=== PATIENT | male | born 1940 | race Caucasian/White ===

== ENCOUNTER 2019-09-23 08:36 | Day surgery (SDC) ==
--- NOTE | 2019-09-16 08:39 | EKG Report ---
Test Performed on : 09/16/2019 08:36:31 AM Test Reason : PAT Blood Pressure : / mmHG Vent. Rate : 055 BPM Atrial Rate : 055 BPM P-R Int : 174 ms QRS Dur : 094 ms QT Int : 434 ms P-R-T Axes : 027 -50 055 degrees QTc Int : 415 ms Sinus bradycardia. Left anterior fascicular block Abnormal ECG No previous ECGs available Confirmed by Brigido WORTHINGTON, Ron French ([id number]) on 09/17/2019 7:30:15 AM
[2019-09-16 09:00] LABS: URINE SOURCE CLEAN CATCH
[2019-09-16 09:19] LABS: BILIRUBIN URINE NEGATIVE (NEGATIVE); BLOOD URINE NEGATIVE (NEGATIVE); COLOR YELLOW; GLUCOSE URINE NEGATIVE (NEGATIVE); KETONE URINE NEGATIVE (NEGATIVE); LEUKOCYTES URINE NEGATIVE (NEGATIVE); NITRITE URINE NEGATIVE (NEGATIVE); PH URINE 6.5; PROTEIN URINE NEGATIVE (NEGATIVE); SP GRAVITY URINE 1.013; TURBIDITY URINE CLEAR (CLEAR); UROBILINOGEN URINE NORMAL (NORMAL)
[2019-09-16 09:22] LABS: UR EPITHELIAL CELLS <10 /HPF (<10); URINE BACTERIA NEGATIVE /HPF; URINE RBC <10 /HPF (<10); URINE WBC <10 /HPF (<10)
[2019-09-16 09:23] LABS: HEMOGLOBIN A1C 5.8 % (4.8-6.0)
[2019-09-16 09:25] LABS: BASO% 1.2 % (0.0-0.8); EOS# 0.21 X1000 (0.0-0.7); EOS% 2.6 % (0.0-10.0); HEMATOCRIT 42.1 % (42.0-52.0); IMM GRAN# 0.04 X1000 (0.0-0.04); IMM GRAN% 0.5 % (0.0-0.5); LYMPH# 2.93 X1000 (1.2-3.4); LYMPH% 35.7 % (20.5-51.1); MCH 31.4 PG (27-31); MCHC 33.3 g/dL (33-37); MCV 94.4 FL (81-99); MONO# 0.74 X1000 (0.11-0.59); NEUT# 4.19 X1000 (1.4-6.5); PLT 268 X1000 (130-400); RBC 4.46 XMIL (4.7-6.1); WBC 8.21 X1000 (4.8-10.8)
[2019-09-16 09:57] LABS: INR 1.04; PROTIME 13.7 Seconds (11.0-16.0)
[2019-09-16 09:58] LABS: PTT 27.8 Seconds (22.3-41.8)
[2019-09-16 10:22] LABS: AGAP 12; ALBUMIN 3.9 g/dL (3.5-5.0); BUN 19 mg/dL (8-22); CALCIUM 9.7 mg/dL (8.8-10.2); CHLORIDE 103 mmol/L (98-107); COSMO 284; ESTIMATED GFR > 60; GLUCOSE 106 mg/dL (70-104); SODIUM 141 mmol/L (136-145); TCO2 26 mmol/L (25-35)
[2019-09-23] MEDS ORDERED: COLACE ONE (09:18)
[2019-09-23] MEDS ORDERED: REGLAN ONE (09:18)
[2019-09-23] MEDS ORDERED: PEPCID ONE (09:18)
[2019-09-23] MEDS ORDERED: LR 1,000 ML ONE (09:19)
[2019-09-23] MEDS ORDERED: KEFZOL 1 GM/D5W 2 GM/100 ML IVPB ONE (09:19)
[2019-09-23] MEDS ORDERED: CELEBREX ONE (09:19)
[2019-09-23] MEDS ORDERED: LYRICA ONE (09:19)
[2019-09-23] MEDS ORDERED: FENTANYL ONE (09:29)
[2019-09-23] MEDS ORDERED: VANCOMYCIN ONE (10:53)
[2019-09-23] MEDS ORDERED: SENSORCAINE 0.25%/EPI 1:200,000 ONE (10:53)
[2019-09-23] MEDS ORDERED: TORADOL ONE (10:53)
[2019-09-23] MEDS ORDERED: DURAMORPH ONE (10:53)
[2019-09-23] MEDS ORDERED: NEOSPORIN G.U. IRRIGANT ONE (10:54)
[2019-09-23] MEDS ORDERED: SODIUM CHLORIDE 0.9% ONE (10:54)
[2019-09-23] MEDS ORDERED: EXPAREL 1.3% ONE (10:54)
[2019-09-23] MEDS ORDERED: DIPRIVAN 1% 500 MG/50 ML BOTTLE ONE (11:12)
[2019-09-23] MEDS: CYKLOKAPRON 1,000 MG/NS 1,000 MG/100 ML IVPB ONE ×2 (11:40→12:55)
[2019-09-23] MEDS ORDERED: DECADRON ONE (11:43)
[2019-09-23] MEDS ORDERED: ZOFRAN ONE (11:43)
[2019-09-23] MEDS ORDERED: OFIRMEV 1000 MG/ISOTONIC SOLN 1,000 MG/100 ML BOTTLE ONE (11:43)
[2019-09-23] MEDS ORDERED: EPHEDRINE ONE (12:06)
[2019-09-23] MEDS ORDERED: SODIUM CHLORIDE 0.9% 10 ML ONE ×2 (12:06→12:21)
[2019-09-23] MEDS ORDERED: NEO-SYNEPHRINE ONE (12:21)
[2019-09-23] MEDS ORDERED: DIPRIVAN 1% ONE (13:00)
[2019-09-23] MEDS ORDERED: NS 1,000 ML ONE (13:46)
[2019-09-23 13:50] LABS: URINE SOURCE CATH
[2019-09-23 13:53] LABS: BILIRUBIN URINE NEGATIVE (NEGATIVE); BLOOD URINE TRACE (NEGATIVE); COLOR YELLOW; GLUCOSE URINE NEGATIVE (NEGATIVE); KETONE URINE NEGATIVE (NEGATIVE); LEUKOCYTES URINE NEGATIVE (NEGATIVE); NITRITE URINE NEGATIVE (NEGATIVE); PROTEIN URINE NEGATIVE (NEGATIVE); SP GRAVITY URINE 1.022; TURBIDITY URINE CLEAR (CLEAR); UROBILINOGEN URINE NORMAL (NORMAL)
[2019-09-23 13:55] LABS: UR EPITHELIAL CELLS <10 /HPF (<10); URINE BACTERIA NEGATIVE /HPF; URINE RBC <10 /HPF (<10); URINE WBC <10 /HPF (<10)
--- NOTE | 2019-09-23 14:00 | Diag Imaging Result Doc PS360 ---
EXAM: KNEE 1-2 VIEWS-LEFT HISTORY: post op TECHNIQUE: Two views COMPARISON: None. FINDINGS: Recent orthopedic replacement of the left knee. There are anterior skin chase and a superior surgical drain. No fracture or dislocation. IMPRESSION: Good alignment to the femoral and tibial components following replacement of the left knee Electronically signed by Barrera Metcalf 09/23/2019 1:57 PM
--- NOTE | 2019-09-23 14:37 | OPERATIVE NOTE ---
PROCEDURE DATE: 09/23/2019 PREOPERATIVE DIAGNOSIS: Degenerative osteoarthritis of the left knee. POSTOPERATIVE DIAGNOSIS: Degenerative osteoarthritis of the left knee. PROCEDURE: Left total knee arthroplasty. DePuy Attune size 8 posterior stabilized femur, size 8 tibial tray, 8 mm rotating platform tibial insert, 38 mm medialized anatomic patella. SURGEON: Beto Armstrong MD. FLAT DRIER: NAZ Ahmadi, who was necessary for proper retraction, manipulation of the extremity, and improved efficiency. SECOND TEST DESIGNER: Ayaan Palmer RN. ANESTHESIA: Spinal. IV FLUIDS: 1500 mL lactated Ringer's. ESTIMATED BLOOD LOSS: 25 mL. TOURNIQUET TIME: 75 minutes at 300 mmHg. COMPLICATION: None. INDICATION: The patient is a 79-year-old male with a chronic history of pain and discomfort of his left knee. He has continued with pain and discomfort despite appropriate nonoperative treatment. X-rays revealed degenerative osteoarthritis and recommendation to proceed with left total knee arthroplasty was offered. Risks and benefits of surgery were explained, including the risks of anesthesia, , bleeding, infection, failure to relieve pain, postoperative stiffness, nerve injury, blood clots, and other imponderables. All questions were answered and the patient and family wished to proceed with surgery. DETAILS OF OPERATION: The patient was taken to the operating room and underwent spinal anesthesia. After adequate anesthesia was obtained, the patient has was placed supine on the operating table. The left lower extremity was subsequently prepped and draped in the usual sterile fashion. An Esmarch was used to exsanguinate the left lower extremity and the tourniquet was inflated to 300 mmHg. A standard anterior incision was made with a skin knife. Medial and lateral skin envelopes were developed. A standard medial parapatellar arthrotomy was then performed. Patella fat pad was excised. Retractors then placed. Approximately 1 cm anterior to the PCL insertion, starting reamer was passed. Intramedullary guide with a distal femoral cutting block was pinned in position. Distal femoral cut was then performed in standard fashion. A sizing block was placed and measured to a size 8. Corresponding pins were placed. A size 8 cutting block was pinned in position. Anterior, posterior, and chamfer cuts were then made. Attention was then turned to the proximal tibia where using the extramedullary guide, the proximal tibia cutting block was pinned in position. It had good alignment confirmed with the alignment lyric. The proximal tibia was then resected. Medial and lateral menisci were excised. A curved osteotome was then used to remove posterior osteophytes off the distal femur. Spacer block was then placed and good soft tissue balance in both flexion and extension. Attention turned back to the proximal tibia. Size 8 tibial tray appeared to be the correct size. This was followed by a central reamer and a fin punch. A box cutting guide was then placed on the distal femur and a box cut was performed. A trial femoral component was then placed and 2 lug holes were drilled. Trial tibial insert was then placed and the knee had good soft tissue balancing and good range of motion. The patella was everted and resected standard fashion. A size 38 appeared to be the correct size. Holes were drilled. Trial patella component was then placed and the knee was then carried through range of motion and had good patellofemoral tracking. After this had been performed, the trial components were then removed. Copious irrigation was then performed with antibiotic pulsatile lavage while vancomycin was mixed with cement on the back table. Sequential cementing was then performed, first with the tibial tray and excess cement was removed with a [place], followed by the femoral component and excess cement was removed with a [place], followed trial tibial insert in full extension. Axial loading was maintained while cement cured. The patella component was then cemented in standard fashion and patella clamp was placed. While cement was curing, Exparel was placed in the deep soft tissue, as well as subcutaneous tissue. After the cement had cured peripheral cement was removed with a small osteotome. The 8 mm rotating platform tibial insert appeared to be the correct size. The trial insert was removed. Exparel was placed in the deep posterior capsule. The wound was copiously irrigated with antibiotic pulsatile lavage. An 8 mm rotating platform tibial insert was then placed. The knee was then carried through range of motion and had good soft tissue balance and good patellofemoral tracking. A 1/8 Hemovac drain was placed but was not sewn in. Copious irrigation was then performed once again with antibiotic pulsatile lavage. A #1 Vicryl was then used to repair the arthrotomy, followed by 2-0 Vicryl to repair the subcutaneous tissue, and skin chase. Adaptic, sterile 4 x 4's, Webril, cryounit, and Naun wrap was applied to the left lower extremity. Patient tolerated the procedure well and was transferred to the recovery room in stable condition. cc: Beto Armstrong MD MTDD
[2019-09-23] MEDS ORDERED: ZOFRAN PO PRN (15:15)
[2019-09-23] MEDS ORDERED: OXY IR PO PRN (15:15)
[2019-09-23] MEDS ORDERED: MORPHINE IV PRN ×3 (15:15)
[2019-09-23] MEDS: COLAZAL PO SCH (15:58)
[2019-09-23] MEDS: NS 1,000 ML IV SCH (16:17)
[2019-09-23] MEDS: FLOMAX PO SCH (16:18)
[2019-09-23] MEDS: TYLENOL PO SCH (17:48)
[2019-09-23] MEDS ORDERED: TOPROL XL PO SCH (21:00)
[2019-09-23] MEDS ORDERED: CRESTOR PO SCH (21:00)
[2019-09-23] MEDS: KEFZOL 2 GM/D5W 2 GM/50 ML IVPB IV SCH (21:41)
[2019-09-23] MEDS: COLACE PO SCH (21:43)
[2019-09-23] MEDS: PERIDEX MT SCH (21:44)
[2019-09-24] MEDS: COLAZAL PO SCH ×2 (00:05→08:32)
[2019-09-24] MEDS: TYLENOL PO SCH ×3 (05:10→12:19)
[2019-09-24] MEDS: OXY IR PO PRN ×3 (05:10→12:19)
[2019-09-24] MEDS: KEFZOL 2 GM/D5W 2 GM/50 ML IVPB IV SCH (05:11)
[2019-09-24 07:05] LABS: HEMATOCRIT 37.1 % (42.0-52.0); HEMOGLOBIN 12.6 g/dL (14.0-18.0)
[2019-09-24 07:19] LABS: AGAP 11; BUN 25 mg/dL (8-22); CHLORIDE 106 mmol/L (98-107); COSMO 287; CREATININE 1.1 mg/dL (0.7-1.2); ESTIMATED GFR > 60; GLUCOSE 121 mg/dL (70-104); POTASSIUM 4.4 mmol/L (3.5-5.1); SODIUM 141 mmol/L (136-145); TCO2 24 mmol/L (25-35)
[2019-09-24] MEDS: NS 1,000 ML IV SCH (08:08)
[2019-09-24] MEDS: COLACE PO SCH (08:31)
[2019-09-24] MEDS: FLOMAX PO SCH (08:31)
[2019-09-24] MEDS: PERIDEX MT SCH (08:32)
[2019-09-24] MEDS ORDERED: ASPIRIN PO SCH (09:00)
[2019-09-24] MEDS ORDERED: PEPCID PO SCH (09:00)
--- NOTE | 2019-09-24 09:26 | ORTHOPAEDICS PROGRESS NOTE ---
DATE: 09/24/2019 SUBJECTIVE: The patient is a pleasant 79-year-old male who is 1 day status post left total knee arthroplasty. Patient currently resting comfortably. OBJECTIVE: On physical examination of the patient's left lower extremity, his wound looks good. There is no signs or symptoms of infection. He is calf is soft. He has active dorsiflexion and plantar flexion. He is able to perform straight leg raise. His labs are pending. IMPRESSION: Postoperative day #1 status post left total knee arthroplasty. PLAN: At this point, will begin mobilization with physical therapy. We will plan on discharging home later today if he is mobilizing well. We will arrange for home physical therapy. cc: Beto Armstrong MD
[2019-09-24 11:10] VITALS: BP 140/69
== END 2019-09-24 12:58 | disposition home or self-care (01) ==
LOC: 4N 08:36 → OR 08:36
PROVIDERS: ATTEND Orthopaedic Surgery Adult Reconstructive Orthopaedic Surgery